=== PATIENT | female | born 1990 | race Caucasian/White ===

== ENCOUNTER 2024-05-08 09:27 | Outpatient (CLI) | payer BC, SELFPAY ==
[2024-05-08 09:50] VITALS: BP 146/52; PULSE 85; PULSE 86; BMI 44.3
[2024-05-08 09:57] LABS: Basophils Percent Auto 0.3 % (0.2-1.2); Eosinophils Absolute Auto 0.1 K/mm3 (0-0.3); Eosinophils Percent Auto 0.8 % (0-4.4); Hematocrit 35.4 % (37.0-47.0); Hemoglobin 11.7 g/dL (12.0-15.0); Immature Granulocyte Absolute 0.02 K/mm3 (0.00-0.031); Immature Granulocyte Percent A 0.2 % (0-0.5); Lymphocytes Absolute Auto 1.65 K/mm3 (0.9-3.2); Lymphocytes Percent Auto 18.4 % (18.3-44.2); Mean Corpuscular HGB Conc 33.1 g/dl (32-36); Mean Corpuscular Hemoglobin 28.4 pg (26-34); Mean Corpuscular Volume 85.9 fl (80-100); Mean Platelet Volume 11.6 fl (7.4-10.4); Monocytes Absolute Auto 0.5 K/mm3 (0.1-0.6); Monocytes Percent Auto 5.5 % (2.6-8.5); Neutrophils Absolute Auto 6.7 K/mm3 (1.3-6.7); Neutrophils Percent Auto 74.8 % (45.5-73.1); Platelet Count Result 190 k/mm3 (150-375); Red Blood Count 4.12 M/mm3 (4.2-5.4); Red Cell Distribution Width 12.3 % (11.5-14.5)
[2024-05-08 10:01] VITALS: BP 122/67; PULSE 88; TEMP 37
[2024-05-08 10:07] VITALS: BP 122/67; PULSE 82
[2024-05-08 10:07] LABS: Add Urine Microscopic? YES; Appearance Urine Clear (Clear); Bacteria Urine None Seen /hpf; Bilirubin Urine Negative (Negative); Blood Urine Negative (Negative); Color Urine Yellow (Yellow); Glucose Urine UA Negative (Negative); Ketones Urine 1+ mg/dL (Negative); Leukocyte Esterase Ur Trace LEU/UL (Negative); Nitrate Urine Negative (Negative); Non Pathogenic Casts 0-2; Protein Urine Trace mg/dL (Negative); RBC Urine 0-2 /hpf (0-2); Squamous Epithelial Cell Urine None Seen /hpf (Few); Urobilinogen Urine 0.2 mg/dL (<2.0); WBC Urine 0-5 /hpf (0-3)
[2024-05-08 10:10] LABS: Alanine Aminotransferase 16 U/L (6-35); Albumin Level 3.3 g/dL (3.5-5.1); Alkaline Phosphatase 181 U/L (38-126); Anion Gap 9 mmol/L (4-12); Aspartate Amino Transferase 18 U/L (14-36); Bilirubin,Total 0.3 mg/dL (0.2-1.3); Blood Urea Nitrogen 4 mg/dL (7-17); Calcium 8.6 mg/dL (8.4-10.2); Carbon Dioxide 23 mmol/L (22-30); Chloride 104 mmol/L (98-107); Estimated Glomerular Filt Rate > 60; Glucose 98 mg/dL (65-110); Potassium 3.3 mmol/L (3.4-5.0); Sodium 136 mmol/L (137-145); Uric Acid 3.6 mg/dL (2.5-7.5)
[2024-05-08 10:11] LABS: Creatinine Urine 56.7 mg/dL; Total Protein Urine Random 20 mg/dL; Ur Ttl Prot Creatinine Ratio 0.35 mg/mg (0-0.20)
[2024-05-08 10:16] VITALS: BP 117/58; PULSE 80
[2024-05-08 10:31] VITALS: BP 112/59; PULSE 79
[2024-05-08 10:46] VITALS: BP 125/54; PULSE 80
--- NOTE | 2024-05-08 10:52 | PC.NURSE ---
Dr. Higgins informed of BP's, reactive NST, and lab results including total protein/ creatinine ratio. Order received to discharge pt to home and to keep next scheduled appointment.
== END 2024-05-08 10:59 | disposition home or self-care (01) ==
LOC: ANHOBOP 09:30 → ANHOBPP 09:32
PROVIDERS: PCP Family Medicine; Visit Provider Obstetrics & Gynecology
DX: O13.9 Gestational [pregnancy-induced] hypertension without significant proteinuria, unspecified trimester (principal); Z3A.00 Weeks of gestation of pregnancy not specified
CPT/HCPCS: 36415; 59025; 80053; 81001; 82570; 84156; 84550; 85025; 99199

== ENCOUNTER 2024-05-18 20:19 | Inpatient (IN) | payer BC, SELFPAY ==
[2024-05-18] VITALS (18 sets, daily range): BP systolic 111–163; BP diastolic 50–92; PULSE 56–91; O2SAT 93–100; BMI 44.3
--- NOTE | 2024-05-18 20:54 | LDADM ---
This patient, Alexandra Grace, was admitted to Labor/Delivery/Recovery 107 on 05/18/24 at 20:19. Plans for labor, pain management and were discussed with patient. Patient/family oriented to hospital policies and general routines including ID bracelet, bed and alarms, visiting hours, pain management, procedures, bathroom and other care routines, personal items, smoking policy, room service/diet and guest tray routines, security routines, and visiting hours. Patient/Family are encouraged to report perceived risks to care and to ask questions if they do not understand what they are told or what they should do. See OBIX for further documentation.
[2024-05-18 21:03] LABS: Basophils Percent Auto 0.3 % (0.2-1.2); Eosinophils Absolute Auto 0.1 K/mm3 (0-0.3); Eosinophils Percent Auto 0.7 % (0-4.4); Hematocrit 37.7 % (37.0-47.0); Hemoglobin 12.6 g/dL (12.0-15.0); Immature Granulocyte Absolute 0.03 K/mm3 (0.00-0.031); Immature Granulocyte Percent A 0.3 % (0-0.5); Lymphocytes Percent Auto 18.2 % (18.3-44.2); Mean Corpuscular HGB Conc 33.4 g/dl (32-36); Mean Corpuscular Hemoglobin 28.4 pg (26-34); Mean Corpuscular Volume 85.1 fl (80-100); Monocytes Absolute Auto 0.7 K/mm3 (0.1-0.6); Monocytes Percent Auto 7.4 % (2.6-8.5); Neutrophils Absolute Auto 7.2 K/mm3 (1.3-6.7); Neutrophils Percent Auto 73.1 % (45.5-73.1); Platelet Count Result 198 k/mm3 (150-375); Red Blood Count 4.43 M/mm3 (4.2-5.4); Red Cell Distribution Width 12.4 % (11.5-14.5); White Blood Count 9.9 K/mm3 (4.5-10.0)
[2024-05-18] MEDS: AMPICILLIN 2 GM/NS 100 ML 2 GM/100 ML BAG IVPB (21:13)
[2024-05-18] MEDS: LACTATED RINGERS 1,000 ML 125 ML IV CONT (21:16)
--- NOTE | 2024-05-18 21:21 | PM.IMHP ---
H&P: HPI History of Present Illness Date/Time: 05/18/24 21:21 Chief Complaint: Labor at term Narrative: this is a 34-year-old 3 para 2 with 2 previous spontaneous vaginal deliveries with an last menstrual period of 08/20/2023, EDC of 05/26/2024, confirmed by 10 week ultrasound who presents 3867 weeks gestation in active labor. She has a new group B strep status. She will therefore be treated with antibiotics. She states her was uncomplicated. [facility] Family History Family History Mother End stage renal disease Diabetes mellitus Chronic obstructive pulmonary disease Father Diabetes mellitus Sibling HSP (hereditary spastic paraplegia) Social History Social History Smoking status: Former smoker Second hand tobacco smoke exposure: Yes Substance use: never Do You Feel Safe in your Home?: Yes Lack of Transportation: No Lack of Food: Never True Current Housing: I Have Housing Concerned About Future Housing: No Difficulty Paying Gas/Electric Bills: No Difficulty Paying for Meds: No Currently Unemployed: No Education: Associate Degree Difficulty w/ Childcare or Family Care: No Spiritual care concerns: No Meds Home Medications and Allergies Home Medications Medication Instructions Recorded Confirmed Type vits no.126-ferrous fum 1 tablet PO DAILY 04/28/24 05/08/24 History 28 mg iron-folic acid 800 mcg tablet (Classic ) Allergies Allergy/AdvReac Type Severity Reaction Status Date / Time ibuprofen Allergy Unknown Swelling Verified 04/28/24 15:34 of Lip/Tongue/Throat Vital Signs Vital Signs - 24 hr 05/18/24 20:46 05/18/24 21:16 05/18/24 20:19 Pulse Rate 61 70 Blood Pressure 121/50 L 163/92 H Oxygen Delivery Room Air Exam Const: General: cooperative, healthy appearing and comfortable Nutritional Appearance: obese Orientation/consciousness: oriented to person, oriented to place and oriented to time HENMT: Head: normal to inspection Resp: Effort & Inspection: normal respiratory effort Cardio: Rate: regular rate Rhythm: regular rhythm Heart sounds: S1 normal heart sound present and S2 normal heart sound present GI: Inspection: normal to inspection ( Gravid uterus) : External Female Exam: normal external appearance Speculum Exam - Vagina: normal appearance of the vagina Speculum Exam - Cervix: normal appearance of the cervix ( cervix 7cm with spontaneous rupture membranes clear. FHT is reassuring) H&P: Results Labs Labs: Short CBC 05/18/24 Range/Units 20:50 WBC 9.9 (4.5-10.0) K/mm3 Hgb 12.6 (12.0-15.0) g/dL Hct 37.7 (37.0-47.0) % Plt Count 198 (150-375) k/mm3 Assessment and Plan Assessment and plan (1) Term : Code(s): Z34.90 - Encounter for supervision of normal , unspecified, unspecified trimester Status: Acute Assessment and Plan: spontaneous vaginal delivery is expected. She group B strep prophylaxis be undertaken in light of her unknown status. She has an epidural candidate
--- NOTE | 2024-05-18 21:46 | PM.OBPRVD ---
OB - Vaginal Delivery Note Procedure Delivery date: 05/18/24 Induction method: None Delivery monitor: External FHT and External Uterine Route of delivery: Episiotomy description: None Laceration Description: Perineal - 1st Degree Delivery repair: vicryl Specimen: No Quantitative Blood Loss (ml): 61 Anesthesia type: Local Disposition: Floor Complications: No immediate complications Narrative: Patient was admitted in active labor at 38 and 6 7th weeks gestation. She stated her group B strep status was unknown we attempted to get a dose of ampicillin. She rapidly went from 6 to complete with spontaneous rupture membranes. She pushed delivered head spontaneously in the JING position. Nuchal cord checked noted to be loose x1 relieved around the occiput. Anterior posterior shoulder delivered spontaneously. Cord clamped x2 and cut infant passed off the table given Apgars of 8 [id number] 9 [id number]. Cord blood was drawn. Placenta delivered intact spontaneously. Twenty of Pitocin placed IV to help firm the uterus after inspecting the vagina the small midline first-degree laceration was noted the [id number] 0 Vicryl placed. There were no immediate complications mom and baby are doing fine at the time of dictation [place] Baby Date of : 05/18/24 Time of : 21:35 Gestational Age by Date: 38 gender: Male Weight (pounds): 9 Weight (ounces): 3 presentation: vertex position: Right Occiput Anterior Placenta delivery description: Spontaneous Cord Vessel Description: 3 Vessels, Nuchal Cord, Loose and Reduced score one minute: 8 score five minutes: 9
[2024-05-18 21:58] LABS: HIV 1/2 Ab P24 Ag Result Negative (Negative)
[2024-05-18] MEDS: OXYTOCIN 30 UNITS/NS 500 ML 30 UNITS/500 ML BAG 125 UNITS IV CONT (22:26)
[2024-05-18 23:37] LABS: Rapid Plasma Reagin Non-Reactive (NonReactive)
[2024-05-18] MEDS: WITCH HAZEL 40 PADS 1 PAD TOPICAL (23:51)
[2024-05-18] MEDS: BENZOCAINE 20% AER SPR (*SP) 56 GM CAN 1 SPRAY TOPICAL (23:52)
[2024-05-19 00:01] VITALS: BP 133/71; PULSE 66
--- NOTE | 2024-05-19 00:17 | OBPPTRN ---
Patient transferred to post room #287 via wheelchair. Support person- Spouse present. Oriented to unit, room, information board, rooming in, admission packet and security measures. Patient verbalizes understanding.
[2024-05-19 00:33] VITALS: BP 138/62; PULSE 68; RESP 18; TEMP 36.8; O2SAT 100
[2024-05-19 03:55] VITALS: BP 149/79; PULSE 67; RESP 18; TEMP 37.1; O2SAT 100
[2024-05-19 04:59] LABS: Hematocrit 32.6 % (37.0-47.0); Hemoglobin 11.1 g/dL (12.0-15.0)
[2024-05-19 07:50] VITALS: BP 149/70; PULSE 88; RESP 16; TEMP 37.1; O2SAT 100
[2024-05-19] MEDS: DOCUSATE SODIUM 100 MG CAPSULE PO (10:45)
[2024-05-19] MEDS: MULTIVIT/MIN/PREN/FOL AC/IRON TABLET 1 TAB PO (10:45)
--- NOTE | 2024-05-19 12:15 | PC.NURSE ---
Mother verbalizes she is able to independently latch with appropriate positioning and alignment. She denies any nipple discomfort and is responsively . Infant is currently meeting outcomes for weight, output, jaundice, blood sugars (d-sticks completed) and feeding frequencies of 8-12 times in 24 hours. Observed latch to the left breast in cross cradle. Mom is comfortable positioning and latching him on her own. She breastfed her other children. Mother declines any additional assistance or education at this time. Mother is encouraged to call for assistance if her infant doesn?t latch, pain with latching, questions or concerns. Mother voiced understanding of information shared along with the mom/baby guide for an additional resource. Reported to the Primary RN.
[2024-05-19 12:16] VITALS: BP 125/64; PULSE 80; RESP 18; TEMP 36.6; O2SAT 99
--- NOTE | 2024-05-19 13:24 | P.PNOB_ITS ---
OB - PN: Subj Subjective Date/time seen: 05/19/24 13:24 Narrative: Pain OK. Would like circumcision for son. OB - PN: Obj Data Labs 05/19/24 04:03 Labs: Laboratory Results - last 24 hr 05/18/24 05/19/24 20:50 04:03 WBC 9.9 RBC 4.43 Hgb 12.6 11.1 L Hct 37.7 32.6 L MCV 85.1 MCH 28.4 MCHC 33.4 RDW 12.4 Plt Count 198 MPV 11.0 H Immature Gran % (Auto) 0.3 Neut % (Auto) 73.1 Lymph % (Auto) 18.2 L Coleman % (Auto) 7.4 Eos % (Auto) 0.7 Baso % (Auto) 0.3 Lymph # (Auto) 1.80 Coleman # (Auto) 0.7 H Eos # (Auto) 0.1 Baso # (Auto) 0.0 Abs Immat Gran (auto) 0.03 Absolute Neuts (auto) 7.2 H Absolute Nucleated RBC 0.000 Nucleated RBC % 0.0 RPR Non-reactive HIV 1&2 Ab/P24 Ag 4thGn Negative Blood Type O Positive Antibody Screen Negative OB - PN A/P Plan day: 1 Comments: A: PPD#1, doing well. P: Reviewed circ. Routine care. Exam Psych: Other: AVSS ABD soft, nontender, fundus firm EXT nontender
[2024-05-19 19:28] VITALS: BP 134/66; PULSE 100; RESP 18; TEMP 36.4; O2SAT 100
[2024-05-20 07:40] VITALS: BP 134/71; PULSE 85; RESP 16; TEMP 36.6; O2SAT 100
--- NOTE | 2024-05-20 08:44 | PM.OBPNVD ---
OB - PN: Subj Subjective Date/time seen: 05/20/24 08:44 Narrative: Pain OK. Would like to go home. OB - PN: Obj Data Labs 05/19/24 04:03 OB - PN A/P Plan day: 2 Comments: A: PPD#2, doing well. P: Home to f/u 6 weeks. Exam Psych: Other: AVSS ABD soft, nontender, fundus firm EXT nontender
--- NOTE | 2024-05-20 08:46 | PM.OBDSVD ---
DS: Admitting Diagnosis Discharge Date 05/20/24 Admitting Diagnosis IUP at term Labor DS: Discharge Diagnosis Discharge Diagnosis (1) (normal spontaneous vaginal delivery): Code(s): O80 - Encounter for full-term uncomplicated delivery Status: Acute OB - DS: Summary OB Procedures : None OB Procedures Intrapartum: Spontaneous Vag Delivery OB Procedures: : None Peripartum Data Laceration Description: Perineal - 1st Degree Episiotomy description: None Time Spent with Patient Time attestation: Total time spent providing and/or coordinating discharge services: Discharge Plan Discharge Attending physician on discharge: Buster Higgins Discharging Clinician: Buster Higgins Patient Disposition: Home, Self-Care Activity: pelvic rest Diet: regular Discharge Instructions: Call or return if temperature above 100.4? F, increased abdominal pain, increased vaginal bleeding or any new problems. Stand Alone Forms: General Discharge Information Follow-up/Referrals: Buster Higgins MD [Physician] - 6 Weeks Discharge Medications: Continued Classic 28 mg iron- 800 mcg Tablet 1 tablet PO DAILY Date of admission: 05/18/24 20:19 Primary Care Provider: MelodyOlman Admitting Provider: Buster Higgins Attending physician on admission: Buster Higgins Condition: Stable
[2024-05-20] MEDS: DOCUSATE SODIUM 100 MG CAPSULE PO (09:13)
[2024-05-20] MEDS: MULTIVIT/MIN/PREN/FOL AC/IRON TABLET 1 TAB PO (09:13)
[2024-05-20] MEDS: WITCH HAZEL 40 PADS 1 PAD TOPICAL (09:17)
--- NOTE | 2024-05-20 09:30 | PC.NURSE ---
Consulted with mother concerning needs and she shared her ability to independently latch infant optimally without pain. Mother is feeding appropriately for growth of and understands stimulating to eat if needed. Infant has had appropriate feedings in the last 24 hours meets the outcomes for weight, output, blood sugar and jaundice at this time. Reinforced understanding of milk production, transition of milk, signs of adequate intake, transition of stool, prevention/relief of engorgement, plugged ducts, mastitis, responsive , community resources, and when to call a provider using the resource of the feeding sheet along with the mom and baby guide and Common Issues handout. Mother voiced understanding of the information shared, is confident to continue effectively her infant at home, when to call for assistance, denies any additional assistance or education at this time. Reported to the Primary RN.
--- NOTE | 2024-05-20 19:13 | PC.NURSE ---
1300 Patient viewed the discharge video Mother & Baby Care, The First Two Weeks . Patient was given the opportunity and encouraged to ask questions. Patient verbalized understanding of information shared and has been given the mother/baby guide for home reference.
[2024-05-21 13:01] VITALS: BP 152/75; PULSE 77; RESP 16; TEMP 37.2; O2SAT 100
== END 2024-05-20 16:20 | disposition home or self-care (01) | DRG 807 ==
LOC: ANHLDR 20:36 → ANHOB2 05-19 00:26
PROVIDERS: Admitting Provider Obstetrics & Gynecology; PCP Family Medicine; Visit Provider Obstetrics & Gynecology
DX: O62.3 Precipitate labor (principal); Z37.0 Single live birth; O69.81X0 Labor and delivery complicated by cord around neck, without compression, not applicable or unspecified; Z87.891 Personal history of nicotine dependence; O70.0 First degree perineal laceration during delivery; Z3A.38 38 weeks gestation of pregnancy
CPT/HCPCS: 36415; 85014; 85018; 85025; 86592; 86703; 86850; 86900; 86901; A9270; G0432; J0290; J2590; J7120